=== PATIENT | male | born 1970 | race American Indian/Alaskan Native ===

== ENCOUNTER 2024-07-31 08:17 | Outpatient (REF) | payer OTHER, SELFPAY ==
[2024-07-31] VITALS (10 sets, daily range): BP systolic 62–162; BP diastolic 80–103
[2024-07-31 08:55] LABS: Hematocrit 57.9 % (39.0-52.0); Hemoglobin 19.4 g/dL (13.0-18.0); Mean Corp Hgb Conc. 33.5 g/dL (33.0-37.0); Mean Corpuscular Hgb 31.1 pg (27.0-31.0); Mean Corpuscular Volume 92.9 fL (80.0-94.0); Mean Platelet Volume 9.9 fL (7.4-10.4); Platelet Count 341 10^3/uL (130-400); Red Blood Cell Count 6.23 10^6/uL (4.70-6.10); Red Cell Dist. Width 17.9 % (11.5-14.5); White Blood Cell Count 22.9 10^3/uL (4.8-10.8)
[2024-07-31 09:05] LABS: INR 1.01; PT 13.6 Sec (11.4-14.6)
== END 2024-07-31 14:01 | disposition home or self-care (01) ==
LOC: RADI 08:17
PROVIDERS: ATTENDING PHYSICIAN Internal Medicine Gastroenterology; FAMILY PHYSICIAN Family Medicine
DX: B18.2 Chronic viral hepatitis C (principal); K70.30 Alcoholic cirrhosis of liver without ascites; Z01.812 Encounter for preprocedural laboratory examination; Z01.818 Encounter for other preprocedural examination
CPT/HCPCS: 88307; 36415; 47000; 76942; 85027; 85610; 88313; 99152; 99153

== ENCOUNTER → 2024-08-30 07:16 | Outpatient (REF) | payer OTHER, SELFPAY | LOC: HWRAD 07:16 | PROVIDERS: ATTENDING PHYSICIAN Nurse Practitioner Family; FAMILY PHYSICIAN Family Medicine | DX: K74.69 Other cirrhosis of liver (principal) | CPT/HCPCS: 76700 ==

== ENCOUNTER → 2024-10-25 08:00 | Outpatient (REF) | payer BC, SELFPAY | LOC: HWRAD 08:00 | PROVIDERS: ATTENDING PHYSICIAN Internal Medicine Hematology & Oncology | DX: Z87.891 Personal history of nicotine dependence (principal) | CPT/HCPCS: 71271 ==

== ENCOUNTER → 2024-12-10 14:16 | Outpatient (REF) | payer BC, OTHER, SELFPAY ==
[2024-12-10 14:35] LABS: % Basophils 1.9 % (0-2); % Eosinophils 3.4 % (0-6); % Lymphocytes 21.4 % (20.5-51.1); % Monocytes 3.6 % (1.7-9.3); % Neutrophils 68.7 % (42.2-75.2); Absolute Basophils 0.5 10^3/uL (0-0.2); Absolute Eosinophils 0.8 10^3/uL (0-0.7); Absolute Immature Granulocytes 0.2 10^3/uL (0-0.05); Absolute Lymphocytes 5.3 10^3/uL (1.2-3.4); Absolute Monocytes 0.9 10^3/uL (0.1-0.6); Hematocrit 54.1 % (39.0-52.0); Hemoglobin 17.7 g/dL (13.0-18.0); Mean Corp Hgb Conc. 32.7 g/dL (33.0-37.0); Mean Corpuscular Hgb 27.1 pg (27.0-31.0); Mean Corpuscular Volume 82.8 fL (80.0-94.0); Mean Platelet Volume 9.9 fL (7.4-10.4); Nucleated Red Blood Cells % 0 % (-); Platelet Count 450 10^3/uL (130-400); Red Blood Cell Count 6.53 10^6/uL (4.70-6.10); Red Cell Dist. Width 19.9 % (11.5-14.5); White Blood Cell Count 24.7 10^3/uL (4.8-10.8)
== END ==
LOC: REG 14:16
PROVIDERS: ATTENDING PHYSICIAN Internal Medicine Hematology & Oncology
DX: Z72.0 Tobacco use (principal); D72.829 Elevated white blood cell count, unspecified; D45 Polycythemia vera
CPT/HCPCS: 36415; 85025

== ENCOUNTER → 2025-01-11 15:36 | Outpatient (REF) | payer BC, OTHER, SELFPAY | LOC: MRI 3T 15:36 | PROVIDERS: ATTENDING PHYSICIAN Internal Medicine Gastroenterology | DX: B18.2 Chronic viral hepatitis C (principal) | CPT/HCPCS: 74183; A9581 ==